=== PATIENT | female | born 1950 | race Caucasian/White ===

== ENCOUNTER 2017-10-12 14:23 | Emergency (ER) | payer MEDICARE ==
[~2017-10-12] VITALS: Ht 180.3 cm; Wt 100.3 kg
[2017-10-12] MEDS ORDERED: FAMOTIDINE 20 MG/2 ML VIAL IV STA (14:41)
[2017-10-12] MEDS ORDERED: PANTOPRAZOLE 40 MG 10ML VIAL IV STA (14:41)
[2017-10-12] MEDS ORDERED: SODIUM CHLORIDE 0.9% 1000ML 1,000 ML ONE (15:00)
[2017-10-12] MEDS ORDERED: ASPIRIN 325 MG TAB PO ONE (15:00)
--- NOTE | 2017-10-12 16:27 | Diagnostic Imaging Report ---
EXAMINATION: CXR 2 VIEW - HOPD INDICATION: \[id number] \[id number] COMPARISON: None FINDINGS: PA and lateral views TUBES and LINES: None. LUNGS: Lungs are well inflated. Mild linear scarring in the right upper lobe with few calcified granulomas suggestive of prior parenchymal disease. There is no evidence of pneumonia or pulmonary edema. PLEURA: No pleural effusion or pneumothorax. HEART AND MEDIASTINUM: The cardiomediastinal silhouette is unremarkable. BONES AND SOFT TISSUES: No acute osseous lesion. Surgical clips overlying the left axilla. UPPER ABDOMEN: No free air under the diaphragm. IMPRESSION: No acute thoracic abnormality. Signed by: Dr. Rosibel Miranda M.D. on 10/12/2017 3:27 PM
== END 2017-10-12 17:02 | disposition home or self-care (01) ==
LOC: FSED 14:23
DX: R00.2 Palpitations (principal); R42 Dizziness and giddiness; I10 Essential (primary) hypertension; K21.9 Gastro-esophageal reflux disease without esophagitis; Z85.3 Personal history of malignant neoplasm of breast
CPT/HCPCS: 71046; 80048; 80076; 80307; 82553; 84484; 85025; 93005; 99284; J7030